=== PATIENT | male | born 1940 | race Caucasian/White ===

== ENCOUNTER 2018-01-30 17:29 | Emergency (ER) | payer OTHER ==
[~2018-01-30] VITALS: Ht 172.7 cm; Wt 74.4 kg
[~2018-01-30 17:29] MED LIST: ASPIR 8181 MG; BIOTIN10000 MCG; COZAAR50 MG
== END 2018-01-30 20:33 | disposition home or self-care (01) ==
LOC: ER 17:29
DX: Q81.0 Epidermolysis bullosa simplex (principal)

== ENCOUNTER 2018-06-27 05:41 | Emergency (ER) | payer OTHER ==
[~2018-06-27] VITALS: Ht 175.3 cm; Wt 77.1 kg
[2018-06-27] MEDS ORDERED: CLONAZEPAM0.5 MG (05:46)
[2018-06-27] MEDS ORDERED: HYDROCHLOROTHIA25 MG (05:46)
[2018-06-27] MEDS ORDERED: CIPRO500 MG (05:46)
[2018-06-27] MEDS ORDERED: ENALAPRIL MALEAT5 MG (05:47)
== END 2018-06-27 12:11 | disposition home or self-care (01) ==
LOC: ER 05:41
DX: S00.83XA Contusion of other part of head, initial encounter (principal); R53.1 Weakness; G30.8 Other Alzheimer's disease; F02.80 Dementia in other diseases classified elsewhere, unspecified severity, without behavioral disturbance, psychotic disturbance, mood disturbance, and anxiety; W06.XXXA Fall from bed, initial encounter; Y93.89 Activity, other specified; Y92.013 Bedroom of single-family (private) house as the place of occurrence of the external cause; Y99.8 Other external cause status